=== PATIENT | female | born 1990 | race Caucasian/White ===

== ENCOUNTER 2016-02-08 19:07 | Emergency (ER) | payer MEDICAID ==
[~2016-02-08 19:07] MED LIST: GLUC40GE PO; LURA1TAB2 PO; PREN29TA PO; ZOFR4TAB PO
[2016-02-08] MEDS ORDERED: oxyCODONE/ACETAMINOPHEN 5 MG/325 MG TAB PO ONE (20:00)
--- NOTE | 2016-02-08 20:10 | PD ---
HPI Travel History International Travel<30 Days: No Contact w/Intl Traveler<30Days: No Known Affected Area: No History of Present Illness HPI This patient is a 25-year-old 3 para 1011 EDC is May 01, 2016 presently at 28 weeks and 1 day she presents with a chief complaint of low back pain radiating to the right side and down her right leg it began at approximately 2 PM no ruptured membranes no vaginal bleeding the baby is active care with Dr. Baeza that the [facility] Course is significant for spotting in the earlier and has had spotting about 2 weeks ago she is presently on pelvic rest ultrasounds at that time have been negative also has a history of decreased blood sugar Review of systems she has increased frequency urgency no discharge odors or itching denies any fever no chills no nausea no vomiting no diarrhea or constipation The patient drove to [place] for 7 hours and returned time 7 hours History Past Medical History Narrative Medical Patient is allergic to Benadryl and tomatoes denies any major medical problems Obstetric History Obstetric History First baby born March 2007 male infant weight 7 lbs. 2 oz. vaginal delivery complicated by preeclampsia in spontaneous AB of May 2013 at 18 weeks required a D&C Past Surgical History Narrative Surgical Gastric bypass 2 other surgeries secondary to gastric bypass Required a transfusion gall bladder removed Social History Alcohol Use: No Tobacco Use: No Substance Abuse: No Allergies-Medications (Allergen,Severity, Reaction): Coded Allergies: Tomato (Verified Allergy, Severe, Anaphylaxis, 01/01/16) Home Meds Active Scripts Ondansetron (Zofran)4 Mg Tab4 Mg PO Q8HR PRN (NAUSEA OR VOMITING) #10 TAB Ref 0 Prov:Jeancarlos Weathers MD 12/24/15 Reported Medications Dextrose Gel (Glucose Gel)40 % Gel1 Tube PO DIRECTED PRN (BSM) #3 TUBE Ref 0 12/25/15 Vit-Iron Carbonyl ( Plus Iron 29-1 mg)1 Tab Tab1 Tab PO DAILY #30 TAB Ref 0 12/24/15 Lurasidone (Latuda)60 Mg Tab60 Mg PO DAILY #30 TAB Ref 0 12/24/15 Review of Systems Musculoskeletal: Other (low back pain) Physical Exam Narrative GENERAL: Well-nourished, well-developed patient. Alert oriented 3 and cooperative in moderate distress secondary to low muscular back pain CARDIOVASCULAR: Regular rate and rhythm without murmurs, gallops, or rubs. RESPIRATORY: Breath sounds equal bilaterally. No accessory muscle use. ABDOMEN/GI: Gravid consistent with 28 weeks soft nontender no palpable contractions no rebound no epigastric or right upper quadrant tenderness bowel sounds are positive Gravid to [-] weeks size Fundal Height: [-] GENITOURINARY: Speculum exam is done no fluid no blood thin white discharge grossly cervix is closed External Genitalia: intact and normal in appearance BUS glands: [-] Cervix: [-] Posterior firm Dilatation: [-] Closed Effacement: [-] 0 Station: [-] High Presentation: [-] Membranes: [intact Uterine Contractions: [-]0 FHT's: Category: [-]1 Baseline: [-] 130 Reactive: [-] + Variability: [-] moderate Decels: [-] 0 EXTREMITIES: No cyanosis or edema.2+ BACK: Nontender without obvious deformity. No CVA tenderness. NEUROLOGICAL: Awake and alert. Motor and sensory grossly within normal limits. Five out of 5 muscle strength in all muscle groups. Normal speech. Data Data Vital Signs Reviewed: Yes (blood pressure 111/74 pulse 79 afebrile) Orders Vital Signs (Adult) .ON ADMISSION (02/08/16 19:51) ^ Labor Status (02/08/16 19:51) Urinalysis - C+S If Indicated (02/08/16 19:51) ^ Hydration (02/08/16 19:51) Oxycodone-Acetamin 5-325 Mg (Percocet (02/08/16 20:00) MDM Medical Record Reviewed: No (no records available) Interpretation(s) 25-year-old at 28 weeks and 1 day Not in labor Rule out UTI Musculoskeletal/sciatic pain Plan External monitoring with a category 1 tracing By mouth fluid hydration Urinalysis; if positive for UTI will treat with Macrobid one by mouth twice a day for 7 days Will give Percocet 06/08/24 2 tabs no prescription for pain Pelvic rest Limited physical activity Appointment with Dr. Baeza on Monday Diagnosis Diagnosis: Primary Impression: Musculoskeletal pain Additional Impressions: Sciatic nerve pain Qualified Code: M54.31 - Sciatic nerve pain, right 28 weeks gestation of Disposition: DISCHARGE HOME Condition: Bren Easley MD Feb 08, 2016 20:10
[2016-02-08 20:42] LABS: BLOOD, URINE NEG (NEG); COMMENT (UR) CULT NOT INDICATED; CULTURE IF INDICATED CULT NOT INDICATED; GLUCOSE,URINE NEG (NEG); KETONE, URINE NEG (NEG); MUCUS URINE FEW /lpf (OCC); NITRITE,URINE NEG (NEG); PH, URINE 6.5 (5.0-8.5); SQUAMOUS EPITHELIAL CELL URINE <1 /hpf (0-5); URINE COLOR YELLOW (YELLW/STRAW)
[2016-02-08] MEDS ORDERED: ALUMINUM/MAGNESIUM/SIMETH 30 ML CUP PO ONE (21:30)
== END 2016-02-08 21:08 | disposition home or self-care (01) ==
LOC: HOBED 19:07
DX: O26.893 Other specified pregnancy related conditions, third trimester (principal); M79.1 Myalgia; M54.31 Sciatica, right side; Z3A.28 28 weeks gestation of pregnancy
CPT/HCPCS: 81001; 99283

== ENCOUNTER 2016-02-14 14:03 | Emergency (ER) | payer MEDICAID ==
[2016-02-14 14:05] VITALS: BP 123/73; PULSE 85; TEMP 98; O2SAT 96
[2016-02-14] MEDS ORDERED: ACETAMINOPHEN/HYDROcodone 325 MG/5 MG TAB PO ONE (15:15)
--- NOTE | 2016-02-14 15:27 | PD ---
HPI Chief Complaint right sided back and leg pain Date Seen: Feb 14, 2016 Time Seen: 15:00 Travel History International Travel<30 Days: No Contact w/Intl Traveler<30Days: No Known Affected Area: No History of Present Illness HPI Pt is a 25 y/o HF with IUP at 29 wks by stated JAYLIN who presents for evaluation of right sided back pain radiating down leg. Pt states she was seen last week for this pain and diagnosed with sciatica. Pt states she was also seen by her OB doctor (Dr. Paul Baeza) and prescribed flexeril but it only makes her sleepy, not helping with pain. Pt reports that she has been using heating pad and cold packs on back but pain is not improving. Pt states pain increases with any movement or turning, difficult to walk, press gas pedal, etc. Pain is sharp/shooting, fluctuating intensity but there constantly. Pt reports she had to call out of work for 4 days and is very concerned about her job. Pt denies contractions, vb, lof, dysuria, vag discharge. +FM Para: 0 : 3 Miscarriage: 1 History Past Medical History Narrative Medical h/o morbid obesity Obstetric History Obstetric History 2008 at 34 wks, PTL 18 wk termination for spina bifida/ anomalies Past Surgical History Narrative Surgical gastric bypass multiple excess skin removal surgeries, abdominoplasty cholecystectomy Family History Narrative Family History non-contributory Social History Alcohol Use: No Tobacco Use: No Substance Abuse: No Allergies-Medications (Allergen,Severity, Reaction): Coded Allergies: Tomato (Verified Allergy, Severe, Anaphylaxis, 01/01/16) Home Meds Active Scripts Ondansetron (Zofran)4 Mg Tab4 Mg PO Q8HR PRN (NAUSEA OR VOMITING) #10 TAB Ref 0 Prov:Jeancarlos Weathers MD 12/24/15 Reported Medications Dextrose Gel (Glucose Gel)40 % Gel1 Tube PO DIRECTED PRN (BSM) #3 TUBE Ref 0 12/25/15 Vit-Iron Carbonyl ( Plus Iron 29-1 mg)1 Tab Tab1 Tab PO DAILY #30 TAB Ref 0 12/24/15 Lurasidone (Latuda)60 Mg Tab60 Mg PO DAILY #30 TAB Ref 0 12/24/15 Review of Systems General / Constitutional: No: Fever, Weight Gain, Weight Loss, Chills, Other Eyes: No: Diploplia, Blurred Vision, Visual changes, Pain, Photophobia, Other HENT: No: Headaches, Vertigo, Dental Difficulties, Lightheadedness, Other Cardiovascular: No: Irregular Rhythm, Chest Pain or Discomfort, Palpitations, Tachycardia, Syncope, Varicosities, Edema, Cyanosis, Other Respiratory: No: Cough, Short of Breath, Wheezing, Other Gastrointestinal: No: Nausea, Vomiting, Diarrhea, Abdominal Pain, Hematemesis, Hematochezia, Constipation, Changes in Bowel Habits, Indigestion, Loss of Appetite, Other Musculoskeletal: Pain Skin: No Rash, No Itching, No Dryness, No Lumps, No Change in Pigmentation, No Change in Nails, No Alopecia, No Lesions, No Breast Lumps, No Breast Tenderness , No Breast Swelling, No Other Psychiatric: No: Anxiety, Depression, Suicidal Ideations, Disorder of Thought, Mood Disorder, Substance Abuse, Homicidal Ideation, Other Endocrine: No: Heat Intolerance, Cold Intolerance, Polydipsia, Polyuria, Other Hematologic/Lymphatic: No Easy Bruising, No Lymph Node Enlargement, No Other Physical Exam Narrative GENERAL: Well-nourished, well-developed patient. SKIN: Warm and dry. HEAD: Normocephalic and atraumatic. EYES: No scleral icterus. No injection or drainage. ENT: No nasal drainage noted. Mucous membranes pink. Airway patent. NECK: Supple, trachea midline. No JVD. CARDIOVASCULAR: Regular rate and rhythm without murmurs, gallops, or rubs. RESPIRATORY: Breath sounds equal bilaterally. No accessory muscle use. ABDOMEN/GI: Abdomen soft, non-tender, bowel sounds present, no rebound, no guarding Gravid GENITOURINARY: deferred Uterine Contractions: intact FHT's: Category: 1 Baseline: 130s Reactive: yes Variability: mod Decels: 2 small variable decels noted during course of monitoring EXTREMITIES: No cyanosis or edema. BACK: Nontender without obvious deformity. No CVA tenderness. NEUROLOGICAL: Awake and alert. Motor and sensory grossly within normal limits. Five out of 5 muscle strength in all muscle groups. Normal speech. Data Data Vital Signs Reviewed: Yes (109/72, 83, 18, 98.2) Orders Vital Signs (Adult) .ON ADMISSION (02/14/16 14:55) ^ Labor Status (02/14/16 14:55) Urinalysis - C+S If Indicated (02/14/16 14:55) Acetamin-Hydrocod 325-5 Mg ([place] 5-325 (02/14/16 15:15) MDM Narrative Course / MDM 25 y/o HF with back pain and sciatica --lortab po x 1 now, rx for #20 lortab given --rest/ice x 48 hours --call OB provider regarding referral for PT --return for worsening symptoms --PTL precautions Plan d/c home with plan as above Diagnosis Diagnosis: Primary Impression: Sciatic nerve pain Qualified Code: M54.31 - Sciatic nerve pain, right Additional Impression: 29 weeks gestation of Disposition: 01 DISCHARGE HOME Condition: Stable Patient Instructions: General Instructions Additional Instructions: Please excuse from work 02/14/16 through 02/16/16. Mariano Ho MD Feb 14, 2016 15:27
== END 2016-02-14 15:51 | disposition home or self-care (01) ==
LOC: HOBED 14:21
DX: M54.31 Sciatica, right side (principal); O26.93 Pregnancy related conditions, unspecified, third trimester; Z3A.29 29 weeks gestation of pregnancy
CPT/HCPCS: 99283

== ENCOUNTER 2016-02-29 00:01 | Emergency (ER) | payer MEDICAID ==
[2016-02-29 01:30] LABS: BLOOD, URINE NEG (NEG); GLUCOSE,URINE NEG (NEG); KETONE, URINE NEG (NEG); MUCUS URINE FEW /lpf (OCC); NITRITE,URINE NEG (NEG); SQUAMOUS EPITHELIAL CELL URINE <1 /hpf (0-5); URINE COLOR LIGHT-YELLOW (YELLW/STRAW)
[2016-02-29 01:31] LABS: COMMENT (UR) CULT NOT INDICATED; CULTURE IF INDICATED CULT NOT INDICATED
--- NOTE | 2016-02-29 01:34 | PD ---
HPI Chief Complaint Abdominal pain Date Seen: Feb 29, 2016 Time Seen: 01:10 Travel History International Travel<30 Days: No Contact w/Intl Traveler<30Days: No Known Affected Area: No History of Present Illness HPI 26-year-old 012 at 31 weeks of gestation, EDC 05/01/16, patient presents to OB ED with complaint of abdominal pain and left side of the abdomen radiating to the groin. Pain score at this time is 2/10. Patient denies cramping, contractions, leakage of fluid, vaginal bleeding. She reports presence of movement. Patient is unassigned, care is with [facility]/Dr. Baeza. medical course is significant for bipolar disorder, history of gastric bypass surgery, history of preeclampsia previous and bipolar depression. Para: 2 : 3 Miscarriage: 1 : 0 History Past Medical History Narrative Medical Significant for: History of preeclampsia previous , history of gastric bypass surgery due to morbid obesity, PCO2 S, history of bipolar depression, hypoglycemia. Obstetric History Obstetric History Spontaneous vaginal delivery 2, spontaneous times one Past Surgical History Narrative Surgical Gastric bypass surgery 2, status post laparoscopic cholecystectomy Family History Narrative Family History Father has hypertension and diabetes, mother from lymphoma, grandparents has hypertension and diabetes Social History Alcohol Use: No Tobacco Use: No Substance Abuse: No Allergies-Medications (Allergen,Severity, Reaction): Coded Allergies: Tomato (Verified Allergy, Severe, Anaphylaxis, 01/01/16) Home Meds Active Scripts Ondansetron (Zofran)4 Mg Tab4 Mg PO Q8HR PRN (NAUSEA OR VOMITING) #10 TAB Ref 0 Prov:Jeancarlos Weathers MD 12/24/15 Reported Medications Dextrose Gel (Glucose Gel)40 % Gel1 Tube PO DIRECTED PRN (BSM) #3 TUBE Ref 0 12/25/15 Vit-Iron Carbonyl ( Plus Iron 29-1 mg)1 Tab Tab1 Tab PO DAILY #30 TAB Ref 0 12/24/15 Lurasidone (Latuda)60 Mg Tab60 Mg PO DAILY #30 TAB Ref 0 12/24/15 Review of Systems Except as stated in HPI: all other systems reviewed are Neg Gastrointestinal: Abdominal Pain Physical Exam Narrative GENERAL: Well-nourished, well-developed patient. SKIN: Warm and dry. HEAD: Normocephalic and atraumatic. EYES: No scleral icterus. No injection or drainage. ENT: No nasal drainage noted. Mucous membranes pink. Airway patent. NECK: Supple, trachea midline. No JVD. CARDIOVASCULAR: Regular rate and rhythm without murmurs, gallops, or rubs. RESPIRATORY: Breath sounds equal bilaterally. No accessory muscle use. BREASTS: Bilateral exam showed no masses , no retractions, no nipple discharge. ABDOMEN/GI: Abdomen soft, gravid, non-tender, bowel sounds present, no rebound, no guarding Gravid to 31 weeks size Fundal Height: 31 cm GENITOURINARY: External Genitalia: intact and normal in appearance BUS glands: normal Cervix: Closed, long, posterior Dilatation: Closed Effacement: 30% Station: -3 Presentation: Cephalic Membranes: Intact Uterine Contractions: None FHT's: Category: one Baseline: 130s Reactive: Yes Variability: Moderate Decels: none EXTREMITIES: No cyanosis or edema. BACK: Nontender without obvious deformity. No CVA tenderness. NEUROLOGICAL: Awake and alert. Motor and sensory grossly within normal limits. Five out of 5 muscle strength in all muscle groups. Normal speech. Data Data Vital Signs Reviewed: Yes Orders Vital Signs (Adult) .ON ADMISSION (02/29/16 01:21) ^ Labor Status (02/29/16 01:21) Urinalysis - C+S If Indicated (02/29/16 01:21) ^ Hydration (02/29/16 01:21) MDM Medical Record Reviewed: Yes Diagnosis Diagnosis: Primary Impression: 31 weeks gestation of Additional Impression: Pain of round ligament affecting , antepartum Disposition: 01 DISCHARGE HOME Condition: Stable Patient Instructions: Abdominal Pain in (ED), General Instructions Additional Instructions: Patient instructed to return to labor and delivery if increased symptoms, cramping, contractions, leakage of fluids, vaginal bleeding or decreased movement. Drink plenty of fluids. Monitor kick counts. Keep office appointment with your doctor as scheduled. Pelvic rest. Take Tylenol for pain as needed. Stephen Pearce MD Feb 29, 2016 01:34
== END 2016-02-29 01:33 | disposition home or self-care (01) ==
LOC: HOBED 00:01
DX: O26.893 Other specified pregnancy related conditions, third trimester (principal); R10.2 Pelvic and perineal pain; Z3A.31 31 weeks gestation of pregnancy
CPT/HCPCS: 81001; 99284

== ENCOUNTER 2016-03-22 12:00 | Observation (INO) | payer MEDICAID ==
--- NOTE | 2016-03-22 12:45 | PD ---
HPI Chief Complaint Here for second opinion because of low HARLEY Date Seen: Mar 22, 2016 Time Seen: 12:41 Travel History International Travel<30 Days: No Contact w/Intl Traveler<30Days: No Known Affected Area: No History of Present Illness HPI 26 at 34.2 and JAYLIN 05/01; care previously with Dr. Baeza. Patient reportedly had an ultrasound performed on 03/18 at her doctor's office which showed an HARLEY of 2.8; the patient states her doctor did not have a definitive plan for this low fluid and "probably will be induced." This morning , the patient contacted care for [facility] for second opinion on this matter. [facility] recommended the patient come to [place] for second opinion. Patient is unsure if she has been leaking fluid. However, she states for the past 2-3 weeks she has felt "wetter." She would like another ultrasound scan to evaluate her HARLEY. She denies vaginal bleeding. She is feeling the baby move as normal. No fever, chills. Para: 2 : 3 History Past Medical History Narrative Medical Morbid obesity. PCO S Bipolar Low blood sugar Obstetric History Obstetric History 26 First : Delivered at 35 weeks secondary to preeclampsia. Second : demise at 24 weeks Past Surgical History Narrative Surgical Gastric bypass 2 Laparoscopy cholecystectomy Family History Family History: Negative Social History Alcohol Use: No Tobacco Use: No Substance Abuse: No Allergies-Medications (Allergen,Severity, Reaction): Coded Allergies: Tomato (Verified Allergy, Severe, Anaphylaxis, 01/01/16) Home Meds Active Scripts Ondansetron (Zofran)4 Mg Tab4 Mg PO Q8HR PRN (NAUSEA OR VOMITING) #10 TAB Ref 0 Prov:Jeancarlos Weathers MD 12/24/15 Reported Medications Dextrose Gel (Glucose Gel)40 % Gel1 Tube PO DIRECTED PRN (BSM) #3 TUBE Ref 0 12/25/15 Vit-Iron Carbonyl ( Plus Iron 29-1 mg)1 Tab Tab1 Tab PO DAILY #30 TAB Ref 0 12/24/15 Lurasidone (Latuda)60 Mg Tab60 Mg PO DAILY #30 TAB Ref 0 12/24/15 Review of Systems General / Constitutional: No: Fever Physical Exam Narrative GENERAL: Well-nourished, well-developed patient. SKIN: Warm and dry. HEAD: Normocephalic and atraumatic. EYES: No scleral icterus. No injection or drainage. ENT: No nasal drainage noted. Mucous membranes pink. Airway patent. NECK: Supple, trachea midline. No JVD. CARDIOVASCULAR: Regular rate and rhythm without murmurs, gallops, or rubs. RESPIRATORY: Breath sounds equal bilaterally. No accessory muscle use. ABDOMEN/GI: Abdomen soft, non-tender, bowel sounds present, no rebound, no guarding Uterine Contractions: None FHT's: Category: 1 Baseline: 140 Reactive: Yes Variability: Moderate Decels: None EXTREMITIES: No cyanosis or edema. BACK: Nontender without obvious deformity. No CVA tenderness. NEUROLOGICAL: Awake and alert. Motor and sensory grossly within normal limits. Five out of 5 muscle strength in all muscle groups. Normal speech. Data Data Vital Signs Reviewed: Yes MDM Medical Record Reviewed: Yes Interpretation(s) 28 at 34.2 present for a second opinion secondary to reportedly low HARLEY. 1. IUP Category 1 tracing Continue to monitor 2. Oligohydramnios -Obtain records -US for BPP -UA -Consult perinatology secondary to reported oligohydramnios, demise at 24 weeks with spina bifida, history of preeclampsia. DW: Dr. Curry Narrative Course / MDM Discussed the case with perinatology. Amniosure negative Patient will be admitted overnight IV hydration with LR Betamethasone 12 mg IM 2 days. Ultrasound patient tomorrow. If persistent oligohydramnios despite IV hydration, consider inducing per MFM recommendations. Plan admit for observation Kahlil Purcell MD R2 Mar 22, 2016 12:45
[2016-03-22 13:38] LABS: BLOOD, URINE NEG (NEG); GLUCOSE,URINE NEG (NEG); HYALINE CAST, URINE 2 /lpf (RARE); KETONE, URINE NEG (NEG); MUCUS URINE FEW /lpf (OCC); NITRITE,URINE NEG (NEG); SQUAMOUS EPITHELIAL CELL URINE 3 /hpf (0-5); URINE COLOR YELLOW (YELLW/STRAW)
[2016-03-22 13:45] LABS: COMMENT (UR) CULT NOT INDICATED; CULTURE IF INDICATED CULT NOT INDICATED
--- NOTE | 2016-03-22 14:12 | HHI.HP ---
HPI Chief Complaint Patient was told she had low fluid volume on ultrasound done last week, she is here for a second opinion on that condition, she sees Dr. Baeza for care [facility]. Date Seen: Mar 22, 2016 Travel History International Travel<30 Days: No Contact w/Intl Traveler<30Days: No Known Affected Area: No History of Present Illness HPI This patient is 26-year-old white female L1 34 weeks who had an ultrasound last week was told she had a low fluid volume of 2.8 which may been just a vertical volume pocket of fluid they measured during her biophysical profile. We do not have report of that exam. With the patient interpreted that is a low amniotic fluid index is a she presents here for second opinion on that condition. Patient denies bleeding or actually ruptured membranes that she says she's felt damp are moist and her clothing. Her baby is active heart rate tracing is reactive and she still had some mild uterine irritability. Para: 2 : 3 History Past Medical History Medical History: Denies Significant Hx Obstetric History Obstetric History The patient had a 24 week demise due to spina bifida and neural tube defect with her last baby, her first baby delivered at 35 weeks due to preeclampsia Family History Family History: Negative Social History Alcohol Use: No Tobacco Use: No Substance Abuse: No Allergies-Medications (Allergen,Severity, Reaction): Coded Allergies: Tomato (Verified Allergy, Severe, Anaphylaxis, 01/01/16) Home Meds Active Scripts Ondansetron (Zofran)4 Mg Tab4 Mg PO Q8HR PRN (NAUSEA OR VOMITING) #10 TAB Ref 0 Prov:Jeancarlos Weathers MD 12/24/15 Reported Medications Dextrose Gel (Glucose Gel)40 % Gel1 Tube PO DIRECTED PRN (BSM) #3 TUBE Ref 0 12/25/15 Vit-Iron Carbonyl ( Plus Iron 29-1 mg)1 Tab Tab1 Tab PO DAILY #30 TAB Ref 0 12/24/15 Lurasidone (Latuda)60 Mg Tab60 Mg PO DAILY #30 TAB Ref 0 12/24/15 Review of Systems General / Constitutional: No: Fever, Weight Gain, Chills, Other Eyes: No: Diploplia, Blurred Vision, Visual changes, Pain, Photophobia HENT: No: Headaches, Vertigo, Lightheadedness Cardiovascular: No: Irregular Rhythm, Chest Pain or Discomfort, Palpitations, Tachycardia, Syncope, Varicosities, Edema, Cyanosis Respiratory: No: Cough, Short of Breath, Other Gastrointestinal: No: Nausea, Vomiting, Diarrhea Genitourinary: No: Decreased Urinary Output, Oliguria Musculoskeletal: No: Limited ROM, Weakness, Cramping, Edema, Pain Skin: No Rash, No Itching, No Dryness, No Lumps, No Change in Pigmentation, No Change in Nails, No Alopecia, No Lesions Neurologic: No: Weakness, Dizziness, Syncope, Focal Abnormalities, Coordination Problem, Headache, Slurred Speech, Seizures Psychiatric: No: Depression, Suicidal Ideations, Homicidal Ideation Endocrine: No: Heat Intolerance, Cold Intolerance, Polydipsia, Polyuria, Other Physical Exam Narrative GENERAL: Well-nourished, well-developed patient. SKIN: Warm and dry. HEAD: Normocephalic and atraumatic. EYES: No scleral icterus. No injection or drainage. ENT: No nasal drainage noted. Mucous membranes pink. Airway patent. NECK: Supple, trachea midline. No JVD. CARDIOVASCULAR: Regular rate and rhythm without murmurs, gallops, or rubs. RESPIRATORY: Breath sounds equal bilaterally. No accessory muscle use. BREASTS: Bilateral exam showed no masses , no retractions, no nipple discharge. ABDOMEN/GI: Abdomen soft, non-tender, bowel sounds present, no rebound, no guarding Gravid to [-34] weeks size Fundal Height: [35 cm-] GENITOURINARY: External Genitalia: intact and normal in appearance BUS glands: [-] Cervix: [-] Closed Dilatation: [0-] Effacement: [-50] Station: [-3] Presentation: [-vtx] Membranes: [intact ] amnisure done and is pending at this time Uterine Contractions: [-]+ irritability FHT's: Category: [1-] Baseline: [-133] Reactive: [-yes] Variability: [mod-] Decels: [-none] EXTREMITIES: No cyanosis or edema. BACK: Nontender without obvious deformity. No CVA tenderness. NEUROLOGICAL: Awake and alert. Motor and sensory grossly within normal limits. Five out of 5 muscle strength in all muscle groups. Normal speech. Data Data Orders Vital Signs (Adult) .ON ADMISSION (03/22/16 12:45) ^ Non Stress Test (03/22/16 12:45) ^ Hydration (03/22/16 12:45) Urinalysis - C+S If Indicated (03/22/16 13:02) Consult Perinatology (03/22/16 ) Us Ob Bpp Wo Nst W Repeat (03/22/16 13:05) Pamg-1 Test .ONCE (03/22/16 13:51) Betamethasone Inj ([place] Soluspan In (03/22/16 14:00) Labs Laboratory Tests Test 03/22/16 12:24 Urine Color YELLOW Urine Turbidity CLEAR Urine pH 6.0 Urine Specific [place] 1.014 Urine Protein NEG Urine Glucose (UA) NEG Urine Ketones NEG Urine Occult Blood NEG Urine Nitrite NEG Urine Bilirubin NEG Urine Urobilinogen LESS THAN 2.0 Urine Leukocyte Esterase TRACE Urine RBC LESS THAN 1 Urine WBC 1 Urine Squamous Epithelial 3 Cells Urine Hyaline Casts 2 Urine Mucus FEW Microscopic Urinalysis Comment CULT NOT INDICATED Assessment/Plan Assessment and Plan This patient is a 26-year-old white female 34 weeks who was followed by Dr. Baeza [facility] for OB care she had ultrasound done last week that showed low fluid volume and she presents here today for a repeat second opinion on that. That she's having no complaints are she does notice some dampness vaginally with no rudi of ruptured membranes no bleeding no regular contractions baby is active. This patient's amnio sure was negative today. She had a ultrasound done and biophysical profile done by perinatology team in the back and her HARLEY was 4.0 and biophysical profile 6 of 8 the estimated weight was 4 lbs. 11 oz. on ultrasound. This patient's past history of a demise with neural tube defect last 24 weeks in a prior also delivering early for preeclampsia her obstetric history is pretty poor and felt that she should be evaluated by the team. I discussed the case with perinatologist who recommended she be admitted for observation hydrated IV fluid and repeat her ultrasound tomorrow and if it is same or worse then consider induction of labor area if it is improved and conservative care may be continued. She is also to get round of steroids IM given in the usual fashion Marino Curry II, MD Mar 22, 2016 14:12
[2016-03-22] MEDS ORDERED: SODIUM CHLORIDE 0.9% FLUSH 5 ML FLUSH IV PRN (14:15)
--- NOTE | 2016-03-22 14:16 | PD.CONS ---
HPI Chief Complaint Low amniotic fluid. Date Seen: Mar 22, 2016 Time Seen: 13:30 Travel History International Travel<30 Days: No Contact w/Intl Traveler<30Days: No Known Affected Area: No History of Present Illness HPI 26 yo [id number] with wilson 05/01/16 at 34w 2d. PNC by Dr Baeza. Pt states that she had ultrasound last Monday in which the amniotic fluid was decreased at 2 cm. Called for a second opinion and was told to come to the ED here. States has felt frequently wet vaginally in the past 2 weeks. No vag bleeding or CTX. No fever. Active fetus as usual. States had negative QS and GDM screen earlier in - no records available. History Past Medical History Narrative Medical Hypoglycemis; gastric by pass, abdominoplasty Obstetric History Obstetric History 1. 35 wk vag delivery- preeclampsia. 2. 24 wk IUFD- ONTD + some chromosomal abnormality Past Surgical History Narrative Surgical Gastric by pass, abdominoplasty Family History Narrative Family History Father- HTN, DM; Mother- HTN, Br Ca- ; Brother- HTN; GM- DM Social History Alcohol Use: No Tobacco Use: No Substance Abuse: No Allergies-Medications (Allergen,Severity, Reaction): Coded Allergies: Tomato (Verified Allergy, Severe, Anaphylaxis, 01/01/16) Home Meds Active Scripts Ondansetron (Zofran)4 Mg Tab4 Mg PO Q8HR PRN (NAUSEA OR VOMITING) #10 TAB Ref 0 Prov:Jeancarlos Weathers MD 12/24/15 Reported Medications Dextrose Gel (Glucose Gel)40 % Gel1 Tube PO DIRECTED PRN (BSM) #3 TUBE Ref 0 12/25/15 Vit-Iron Carbonyl ( Plus Iron 29-1 mg)1 Tab Tab1 Tab PO DAILY #30 TAB Ref 0 12/24/15 Lurasidone (Latuda)60 Mg Tab60 Mg PO DAILY #30 TAB Ref 0 12/24/15 Review of Systems Except as stated in HPI: all other systems reviewed are Neg Physical Exam Narrative GENERAL: Well-nourished, well-developed patient. SKIN: Warm and dry. HEAD: Normocephalic and atraumatic. EYES: No scleral icterus. No injection or drainage. ENT: No nasal drainage noted. Mucous membranes pink. Airway patent. NECK: Supple, trachea midline. No JVD. CARDIOVASCULAR: Regular rate and rhythm without murmurs, gallops, or rubs. RESPIRATORY: Breath sounds equal bilaterally. No accessory muscle use. ABDOMEN/GI: Abdomen soft, non-tender, bowel sounds present, no rebound, no guarding Gravid uterus, no contractions Pelvic: Deferred EXTREMITIES: No cyanosis or edema. BACK: Nontender without obvious deformity. No CVA tenderness. NEUROLOGICAL: Awake and alert. Motor and sensory grossly within normal limits. Five out of 5 muscle strength in all muscle groups. Normal speech. FMS: Baseline 140s BPM, reactive, occasional mild variable. No CTX. US: Cephalic, efw 4lbs 11oz, limited anatomy due to oligo/ BH/position; HARLEY 4 cm ; BPP 6/8 (-2 for fluid); Umb art Doppler-2.6. Placenta anterior, gr3 with areas of infarcts. Data Data Orders Vital Signs (Adult) .ON ADMISSION (03/22/16 12:45) ^ Non Stress Test (03/22/16 12:45) ^ Hydration (03/22/16 12:45) Urinalysis - C+S If Indicated (03/22/16 13:02) Consult Perinatology (03/22/16 ) Us Ob Bpp Wo Nst W Repeat (03/22/16 13:05) Pamg-1 Test .ONCE (03/22/16 13:51) Betamethasone Inj (Celestone Soluspan In (03/22/16 14:00) Labs NA yet MDM Medical Record Reviewed: No Narrative Course / MDM IMPRESSION: 1. IUP 34w 2d 2. Severe oligohydramnios RECOMMENDATIONS: 1. PPROM evaluation by OB 2. If PROM confirmed: - late pre term steroids then proceed with induction of labor tomorrow 3.. If PROM ruled out: - Late pre term steroids today and repeat dose tomorrow - IV hydration overnight - Repeat HARLEY tomorrow - Deliver if persists with severe oligohydramnios 4. Discussed late pre term steroids for lung maturity- pros/ cons reviewed, including risk of hypoglycemia 5. Situation, recommendations and risks (including late pre term risks as well as risks of IUFD, neurologic damage, etc) discussed. All questions answered. 6. Case/ recommendations discussed with Dr Curry 60 minutes. Randall Lerma MD Mar 22, 2016 14:16
[2016-03-22 14:33] LABS: AUTOMATED NEUTROPHIL # 6.7 TH/MM3 (1.8-7.7); BASOPHIL # 0.1 TH/MM3 (0-0.2); BASOPHIL % 0.8 % (0.0-2.0); EOSINOPHIL # 0.1 TH/MM3 (0-0.4); EOSINOPHIL % 0.8 % (0.0-4.0); HEMATOCRIT 32.8 % (35.0-46.0); HEMO FLAGS DIFF FINAL; LYMPH % 14.9 % (9.0-44.0); LYMPHOCYTE # 1.3 TH/MM3 (1.0-4.8); MEAN CELL VOLUME 85.1 FL (80.0-100.0); MEAN CORPUSCULAR HEMOGLOBIN 28.4 PG (27.0-34.0); MEAN CORPUSCULAR HGB CONC 33.3 % (32.0-36.0); MONO % 7.4 % (0.0-8.0); NEUT % 76.1 % (16.0-70.0); PLATELET COUNT 196 TH/MM3 (150-450); RED BLOOD COUNT 3.86 MIL/MM3 (4.00-5.30); RED CELL DISTRIBUTION WIDTH 13.7 % (11.6-17.2); WHITE BLOOD COUNT 8.8 TH/MM3 (4.0-11.0)
[2016-03-22] MEDS: LACTATED RINGER'S 1000 ML INJ 1,000 ML IV SCH ×2 (14:41→21:31)
[2016-03-22] MEDS: BETAMETHASONE SOD PHOS/ACETATE SUSP 30 MG/5 ML VIAL IM SCH (14:41)
[2016-03-22 14:59] LABS: POTASSIUM 3.9 MEQ/L (3.5-5.1)
[2016-03-22 16:28] VITALS: BP 136/74; PULSE 79; RESP 18; TEMP 98.2
[2016-03-22 19:42] VITALS: BP 119/65; PULSE 89; RESP 18; TEMP 99
[2016-03-22] MEDS: SODIUM CHLORIDE 0.9% FLUSH 5 ML FLUSH IV SCH ×2 (21:00→21:30)
[2016-03-22 21:19] VITALS: BP 123/73; PULSE 76; TEMP 98
[2016-03-22 21:46] VITALS: RESP 18
[2016-03-22 23:20] VITALS: BP 124/66; PULSE 76
[2016-03-22 23:21] VITALS: RESP 18; TEMP 98
[2016-03-23] VITALS (7 sets, daily range): BP systolic 112–135; BP diastolic 54–77; PULSE 70–93; RESP 18–20; TEMP 97.9–98
[2016-03-23] MEDS ORDERED: diphenhydrAMINE HCL 50 MG CAP PO PRN (04:15)
[2016-03-23] MEDS: LACTATED RINGER'S 1000 ML INJ 1,000 ML IV SCH (04:25)
--- NOTE | 2016-03-23 09:40 | PD.OB.ANTE ---
Subjective Interval History This patient is 34 weeks with oligohydramnios. She's been followed Dr. Baeza for OB care, she has a biophysical profile and HARLEY yesterday was 4.0 , and BPP was 6 of 8, she was seen by maternal- medicine and recommended admission and IV hydration and a recheck of her HARLEY today. That was done she received several liters of LR. She is clinically remained in good condition. Her ultrasound today shows an HARLEY of 5.5 with a biophysical 8 out of 8. At this time I would not recommend induction of labor at 34 weeks but continuous conservative care and close monitoring of amniotic fluid volume she is going to have her records and go to Dr. Baeza for review of same and will recommend the HARLEY every 3-4 days and induction of labor that HARLEY decreases significantly Objective Vital Signs Vital Signs Date Time Temp Pulse Resp B/P Pulse Ox O2 Delivery O2 Flow Rate FiO2 03/23/16 04:26 97.9 03/23/16 04:17 18 03/23/16 04:16 70 135/77 03/23/16 01:45 98.0 18 03/23/16 01:41 72 112/54 03/22/16 23:21 98.0 18 03/22/16 23:20 76 124/66 03/22/16 21:46 18 03/22/16 21:19 98.0 03/22/16 21:19 76 123/73 03/22/16 19:42 99.0 89 18 03/22/16 19:42 119/65 03/22/16 16:28 98.2 79 18 136/74 Lab & Micro Results Test 03/22/16 03/22/16 12:24 14:20 Urine Color YELLOW Urine Turbidity CLEAR Urine pH 6.0 Urine Specific [place] 1.014 Urine Protein NEG mg/dL Urine Glucose (UA) NEG mg/dL Urine Ketones NEG mg/dL Urine Occult Blood NEG Urine Nitrite NEG Urine Bilirubin NEG Urine Urobilinogen LESS THAN 2.0 MG/DL Urine Leukocyte Esterase TRACE Urine RBC LESS THAN 1 /hpf Urine WBC 1 /hpf Urine Squamous Epithelial 3 /hpf Cells Urine Hyaline Casts 2 /lpf Urine Mucus FEW /lpf Microscopic Urinalysis Comment CULT NOT INDICATED White Blood Count 8.8 TH/MM3 Red Blood Count 3.86 MIL/MM3 Hemoglobin 10.9 GM/DL Hematocrit 32.8 % Mean Corpuscular Volume 85.1 FL Mean Corpuscular Hemoglobin 28.4 PG Mean Corpuscular Hemoglobin 33.3 % Concent Red Cell Distribution Width 13.7 % Platelet Count 196 TH/MM3 Mean Platelet Volume 11.1 FL Neutrophils (%) (Auto) 76.1 % Lymphocytes (%) (Auto) 14.9 % Monocytes (%) (Auto) 7.4 % Eosinophils (%) (Auto) 0.8 % Basophils (%) (Auto) 0.8 % Neutrophils # (Auto) 6.7 TH/MM3 Lymphocytes # (Auto) 1.3 TH/MM3 Monocytes # (Auto) 0.7 TH/MM3 Eosinophils # (Auto) 0.1 TH/MM3 Basophils # (Auto) 0.1 TH/MM3 CBC Comment DIFF FINAL Differential Comment Sodium Level 139 MEQ/L Potassium Level 3.9 MEQ/L Chloride Level 108 MEQ/L Carbon Dioxide Level 23.0 MEQ/L Anion Gap 8 MEQ/L Blood Urea Nitrogen 8 MG/DL Creatinine 0.66 MG/DL Estimat Glomerular Filtration 107 ML/MIN Rate Random Glucose 82 MG/DL Calcium Level 8.5 MG/DL Blood Type O POSITIVE Antibody Screen NEGATIVE Physical Exam GENERAL: Well-nourished, well-developed patient. CARDIOVASCULAR: Regular rate and rhythm without murmurs, gallops, or rubs. RESPIRATORY: Breath sounds equal bilaterally. No accessory muscle use. ABDOMEN/GI: Abdomen soft, non-tender. Fundus: [-] GENITOURINARY: External Genitalia: intact and normal in appearance Cervix: [-] Dilatation: [-] Effacement: [-] Station: [-] Presentation: [-] Membranes: [-] Uterine Contractions: [-] FHT's: Category: [-] Baseline: [-] Reactive: [-] Variability: [-] Decels: [-] EXTREMITIES: No cyanosis or edema, non-tender, without signs of DVT. Assessment and Plan Assessment and Plan This patient is a 26-year-old white female 34 weeks who was followed by Dr. Baeza [facility] for OB care she had ultrasound done last week that showed low fluid volume and she presents here today for a repeat second opinion on that. That she's having no complaints are she does notice some dampness vaginally with no rudi of ruptured membranes no bleeding no regular contractions baby is active. This patient's amnio sure was negative today. She had a ultrasound done and biophysical profile done by perinatology team in the back and her HARLEY was 4.0 and biophysical profile 6 of 8 the estimated weight was 4 lbs. 11 oz. on ultrasound. This patient's past history of a demise with neural tube defect last 24 weeks in a prior also delivering early for preeclampsia her obstetric history is pretty poor and felt that she should be evaluated by the team. I discussed the case with perinatologist who recommended she be admitted for observation hydrated IV fluid and repeat her ultrasound tomorrow and if it is same or worse then consider induction of labor area if it is improved and conservative care may be continued. She is also to get round of steroids IM given in the usual fashion Marino Curry II, MD Mar 23, 2016 09:40
--- NOTE | 2016-03-23 09:52 | HHI.DCPOC ---
Discharge Care Plan Diagnosis: (1) Oligohydramnios antepartum (2) 34 weeks gestation of (3) Bipolar disorder (4) Hypoglycemia after GI (gastrointestinal) surgery (5) Hx of gastric bypass Report Symptoms to Your Doctor -Temperate above 100.5 degrees -Redness, of incision or excessive or foul smelling drainage -Unusual pain or calf pain -Increased vaginal bleeding -Painful or difficulty urinating -Feelings of extreme sadness or anxiety after 2 weeks Goals to Promote Your Health * To prevent worsening of your condition and complications * To maintain your health at the optimal level Directions to Meet Your Goals Take your medications as prescribed Follow your dietary instruction Follow activity as directed Ensure plenty of rest for recovery Drink fluids for hydration Keep your appointments as scheduled Take your immunizations and boosters as scheduled If your symptoms worsen call your PCP, if no PCP go to Urgent Care Center or Emergency Room Smoking is Dangerous to Your Health. Avoid second hand smoke Call the 24-hour crisis hotline for domestic abuse at Maria M Hung MD R1 Mar 23, 2016 09:52
[2016-03-23 12:28] LABS: AMPHETAMINE, URINE NEG (NEG); BARBITURATES, URINE NEG (NEG); COCAINE, URINE NEG (NEG)
[2016-03-23] MEDS: BETAMETHASONE SOD PHOS/ACETATE SUSP 30 MG/5 ML VIAL IM SCH (13:27)
[2016-03-29 07:30] LABS: PHENCYCLIDINE URINE NEG (NEG)
[2016-03-29 07:31] LABS: BATH SALTS (MDPV) UR NEG (NEG); ECSTASY (MDMA) UR NEG (NEG); HEROIN (6-ACETYLMORPHINE) UR NEG (NEG); K2 SPICE UR NEG (NEG); OBMETHADONE UR NEG (NEG); OXYCODONE (PERCODAN) NEG (NEG)
== END 2016-03-23 13:54 | disposition home or self-care (01) ==
LOC: HOBED 12:00 → H2EA 14:18
PROVIDERS: ADMIT Obstetrics & Gynecology Maternal & Fetal Medicine; ATTEND Obstetrics & Gynecology Maternal & Fetal Medicine
DX: O41.03X0 Oligohydramnios, third trimester, not applicable or unspecified (principal); E16.1 Other hypoglycemia; F31.9 Bipolar disorder, unspecified; Z3A.34 34 weeks gestation of pregnancy; Z98.84 Bariatric surgery status
CPT/HCPCS: 59025; 76816; 76819; 80048; 80307; 81001; 85025; 86850; 86900; 86901; 99285; G0378; G0481; J0702; J7120; Q0163

== ENCOUNTER 2016-04-01 23:48 | Emergency (ER) | payer MEDICAID ==
[~2016-04-01 23:48] MED LIST changes: -LURA1TAB2 PO
--- NOTE | 2016-04-02 00:38 | PD ---
HPI Chief Complaint Decreased movement Date Seen: Apr 02, 2016 Time Seen: 00:33 Travel History International Travel<30 Days: No Contact w/Intl Traveler<30Days: No Known Affected Area: No History of Present Illness HPI Patient is a 26-year-old female who is presently at 35 weeks 6 days. Patient has a due date of May 01, 2016. She is being followed twice weekly for oligohydramnios. Her last ultrasound measuring her fluid was yesterday. She has an induction set up for next Monday at [facility]. Patient states the baby is moving well since she's been here in labor and delivery. Para: 1 : 3 History Past Medical History Medical History: Denies Significant Hx Obstetric History Obstetric History Spontaneous vaginal delivery Past Surgical History Narrative Surgical Gastric bypass with subsequent removal of excess skin Breast augmentation Family History Family History: Negative Social History Alcohol Use: No Tobacco Use: No Substance Abuse: No Allergies-Medications (Allergen,Severity, Reaction): Coded Allergies: Tomato (Verified Allergy, Severe, Anaphylaxis, 01/01/16) Home Meds Active Scripts Ondansetron (Zofran)4 Mg Tab4 Mg PO Q8HR PRN (NAUSEA OR VOMITING) #10 TAB Ref 0 Prov:Jeancarlos Weathers MD 12/24/15 Reported Medications Dextrose Gel (Glucose Gel)40 % Gel1 Tube PO DIRECTED PRN (BSM) #3 TUBE Ref 0 12/25/15 Vit-Iron Carbonyl ( Plus Iron 29-1 mg)1 Tab Tab1 Tab PO DAILY #30 TAB Ref 0 12/24/15 Review of Systems Except as stated in HPI: all other systems reviewed are Neg Physical Exam Narrative GENERAL: Well-nourished, well-developed patient. SKIN: Warm and dry. HEAD: Normocephalic and atraumatic. EYES: No scleral icterus. No injection or drainage. ENT: No nasal drainage noted. Mucous membranes pink. Airway patent. NECK: Supple, trachea midline. No JVD. CARDIOVASCULAR: Regular rate and rhythm without murmurs, gallops, or rubs. RESPIRATORY: Breath sounds equal bilaterally. No accessory muscle use. BREASTS: Bilateral exam showed no masses , no retractions, no nipple discharge. ABDOMEN/GI: Abdomen soft, non-tender, bowel sounds present, no rebound, no guarding Gravid to [36 weeks-] weeks size Fundal Height: [-] GENITOURINARY: Deferred External Genitalia: intact and normal in appearance BUS glands: [-] Cervix: [-] Dilatation: [-] Effacement: [-] Station: [-] Presentation: [-] Membranes: [intact or ruptured] Uterine Contractions: [-] FHT's: Category: [-1] Baseline: 140 Reactive: Reactive Variability: [-Moderate] Decels: [-Absent] accelerations are present EXTREMITIES: No cyanosis or edema. BACK: Nontender without obvious deformity. No CVA tenderness. NEUROLOGICAL: Awake and alert. Motor and sensory grossly within normal limits. Five out of 5 muscle strength in all muscle groups. Normal speech. MDM Plan Patient is a 26-year-old female with known oligohydramnios. Twice weekly testing has been normal. Patient experienced transient decreased movement that has subsequently resolved since she has been here in labor and delivery. She has a induction set up for next Monday. She has 2 additional appointments this week for testing. Diagnosis Diagnosis: Primary Impression: 35 weeks gestation of Additional Impression: Decreased amniotic fluid Disposition: DISCHARGE HOME Ebonie Julian MD Apr 02, 2016 00:38
== END 2016-04-02 01:15 | disposition home or self-care (01) ==
LOC: HOBED 23:48
DX: O41.03X0 Oligohydramnios, third trimester, not applicable or unspecified (principal); Z3A.35 35 weeks gestation of pregnancy
CPT/HCPCS: 59025

== ENCOUNTER 2016-07-03 23:40 | Emergency (ER) | payer MEDICAID ==
[~2016-07-03] VITALS: Ht 165.1 cm; Wt 108.0 kg
[2016-07-03 23:42] VITALS: BP 140/86; PULSE 78; RESP 18; TEMP 97.7; O2SAT 100
[2016-07-03] MEDS ORDERED: LURA120T PO (23:46)
[2016-07-04 00:10] VITALS: BP 135/81; PULSE 84; RESP 18; O2SAT 99
--- NOTE | 2016-07-04 00:56 | PD ---
HPI Chief Complaint: Fall Time Seen by Provider: 00:52 Travel History International Travel<30 days: No Contact w/Intl Traveler<30days: No Traveled to known affect area: No History of Present Illness HPI The patient is a 26-year-old female, frequent visitor to emergency department for minor problems who fell 4 hours ago and hurt her left shoulder. She has never fractured her left shoulder before. She denies any other injury. She states there is no possibility of . PFSH Past Medical History Hx Anticoagulant Therapy: No Anemia: Yes (S/P SURGERY) Bipolar Disorder: Yes Anxiety: Yes Depression: Yes Cancer: No Cardiovascular Problems: No Chemotherapy: No Cerebrovascular Accident: No Diabetes: Yes (hypoglycemic) Diminished Hearing: No Endocrine: Yes (HYPOGLYCEMIC AT TIMES) Gastrointestinal Disorders: No Genitourinary: No Immune Disorder: No Implanted Vascular Access Dvce: Yes Medical other: Yes (HYPOGLYCEMIC) Musculoskeletal: No Neurologic: No Psychiatric: No Reproductive: Yes (PCOS) Respiratory: No Immunizations Current: Yes Sleep Apnea: Yes (RESOLVED) Thyroid Disease: No Tetanus Vaccination: < 5 Years Influenza Vaccination: Yes ?: Not LMP: NOW : 3 Para: 2 Miscarriage: 1 Ovarian Cysts: Yes Past Surgical History Abdominal Surgery: Yes (GBP, ABDOMINOPLASTY, cholecystectomy) Body Medical Devices: BREAT IMPLANTS Cholecystectomy: Yes Hysterectomy: No Other Surgery: Yes (TUMMY TUCK AND EXCESS SKIN REMOVAL 4 DAYS) Social History Alcohol Use: No Tobacco Use: No Substance Use: No Allergies-Medications (Allergen,Severity, Reaction): Coded Allergies: Tomato (Verified Allergy, Severe, Anaphylaxis, 07/03/16) Reported Meds & Prescriptions Reported Meds & Active Scripts Active Reported Latuda (Lurasidone) 120 Mg Tab 120 Mg PO DAILY Review of Systems Except as stated in HPI: all other systems reviewed are Neg Physical Exam Narrative GENERAL: Well-nourished, well-developed patient in minimal apparent distress with her left shoulder pain. Her vital signs are normal. SKIN: Focused skin assessment warm/dry. HEAD: Normocephalic. EYES: No scleral icterus. No injection or drainage. NECK: Supple, trachea midline. No JVD or lymphadenopathy. CARDIOVASCULAR: Regular rate and rhythm without murmurs, gallops, or rubs. RESPIRATORY: Breath sounds equal bilaterally. No accessory muscle use. GASTROINTESTINAL: Abdomen soft, non-tender, nondistended. MUSCULOSKELETAL: No cyanosis, or edema. There is no ecchymoses noted over the left shoulder. There is no deformity of the left shoulder. The only clavicle or tenderness is at the lateral aspect of the clavicle and is minimal. She has active abduction of the left shoulder to 90 but this is limited beyond that because of pain. Good capillary refill and pinprick is present distally on the left hand. BACK: Nontender without obvious deformity. No CVA tenderness. Data Data Last Documented VS Vital Signs Date Time Temp Pulse Resp B/P Pulse Ox O2 Delivery O2 Flow Rate FiO2 07/04/16 01:30 76 16 140/85 100 Room Air 07/03/16 23:42 97.7 Orders Shoulder, Complete (>2vws) (07/04/16 00:53) [facility] Medical Decision Making Medical Screen Exam Complete: Yes Emergency Medical Condition: Yes Medical Record Reviewed: Yes Interpretation(s) X-rays of the left shoulder are unremarkable. Differential Diagnosis Contusion left shoulder, dislocation left shoulder, fracture left shoulder Narrative Course The patient has a contusion left shoulder. Plan: She will be given a sling and a prescription for Motrin 600 mg 3 times daily. Diagnosis Primary Impression: Contusion of left shoulder Additional Instructions: Rest and Motrin are the treatment for this. Take the Motrin 600 mg 3 times daily. Follow-up with a primary care physician this week. Med/Other Pt SpecificInfo: Prescription(s) given Scripts Ibuprofen 600 Mg Sbo024 Mg PO TID #44 TAB Ref 0 Prov:Gentry Crawford MD 07/04/16 Disposition: 01 DISCHARGE HOME Condition: Stable Gentry Crawford MD July 04, 2016 00:55
--- NOTE | 2016-07-04 01:25 | RADHPO ---
EXAM DATE/TIME: 07/04/2016 01:00 [place] COMPARISON: No previous studies available for comparison. INDICATIONS : Left shoulder pain after falling MEDICAL HISTORY : Diabetes mellitus type II. SURGICAL HISTORY : None. ENCOUNTER: Initial ACUITY: 1 day PAIN SCORE: 7/10 LOCATION: Left shoulder FINDINGS: Multiple view examination of the left shoulder demonstrates no evidence of fracture or dislocation. The glenohumeral and acromioclavicular joints are maintained. There is normal range of motion betwee n internal and external rotation. Bony mineralization is normal. CONCLUSION: Unremarkable examination of the left shoulder. Bashir Gong MD on July 04, 2016 at 1:21 Board Certified Radiologist. This report was verified electronically.
[2016-07-04 01:30] VITALS: BP 140/85; PULSE 76; RESP 16; O2SAT 100
[2016-07-04] MEDS ORDERED: IBUP-232 PO (02:29)
== END 2016-07-04 02:53 | disposition home or self-care (01) ==
LOC: PHED 23:40
DX: S40.012A Contusion of left shoulder, initial encounter (principal); E11.649 Type 2 diabetes mellitus with hypoglycemia without coma; W19.XXXA Unspecified fall, initial encounter; Y92.9 Unspecified place or not applicable; Y99.9 Unspecified external cause status
CPT/HCPCS: 73030; 99283

== ENCOUNTER 2016-12-13 14:48 | Emergency (ER) | payer MEDICAID ==
[~2016-12-13 14:48] MED LIST changes: +DIPH25CA PO; -GLUC40GE PO; +LOPE2CAP PO; +PRED20 PO; -PREN29TA PO; -ZOFR4TAB PO; +ZOFR4TAB3 SL
[2016-12-13 14:50] VITALS: BP 141/85; PULSE 72; RESP 20; TEMP 98; O2SAT 98
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
[2016-12-13] MEDS ORDERED: ROBA500T PO (17:35)
[2016-12-13] MEDS ORDERED: IBUP1TAB7 PO (17:35)
== END 2016-12-13 17:52 | disposition left against medical advice (07) ==
LOC: NED 14:48
DX: M54.9 Dorsalgia, unspecified (principal); D64.9 Anemia, unspecified; F31.9 Bipolar disorder, unspecified; F41.9 Anxiety disorder, unspecified; E28.2 Polycystic ovarian syndrome; G47.30 Sleep apnea, unspecified
CPT/HCPCS: 99281

== ENCOUNTER 2016-12-13 15:46 | Emergency (ER) | payer OTHER, MEDICAID ==
[~2016-12-13] VITALS: Ht 167.6 cm; Wt 119.0 kg
[2016-12-13 15:54] VITALS: BP 158/93; PULSE 87; RESP 16; TEMP 98.1; O2SAT 100
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
[2016-12-13] MEDS ORDERED: ORPHENADRINE INJ 60 MG/2 ML AMP IM ONE (16:15)
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
[2016-12-13] MEDS ORDERED: IBUP1TAB7 PO (17:35)
[2016-12-13] MEDS ORDERED: ROBA500T PO (17:35)
== END 2016-12-13 17:51 | disposition home or self-care (01) ==
LOC: PHEFT 15:46
DX: S16.1XXA Strain of muscle, fascia and tendon at neck level, initial encounter (principal); S39.012A Strain of muscle, fascia and tendon of lower back, initial encounter; V89.2XXA Person injured in unspecified motor-vehicle accident, traffic, initial encounter
CPT/HCPCS: 72125; 72131; 84703; 96372; 99285; J2360

== ENCOUNTER 2016-12-14 08:06 | Emergency (ER) | payer MEDICAID ==
[~2016-12-14] VITALS: Ht 167.6 cm; Wt 120.0 kg
[~2016-12-14 08:06] MED LIST changes: -DIPH25CA PO; +IBUP1TAB7 PO; -LOPE2CAP PO; -PRED20 PO; +ROBA500T PO; -ZOFR4TAB3 SL
[2016-12-14 08:08] VITALS: BP 179/101; PULSE 93; RESP 20; TEMP 98.8; O2SAT 100
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
== END 2016-12-14 08:26 | disposition left against medical advice (07) ==
LOC: NEPD 08:06
DX: Z04.1 Encounter for examination and observation following transport accident (principal)
CPT/HCPCS: 99281

== ENCOUNTER 2017-03-01 00:13 | Emergency (ER) | payer MEDICAID ==
[~2017-03-01] VITALS: Ht 165.1 cm; Wt 125.5 kg
[2017-03-01 00:20] VITALS: BP 158/99; PULSE 100; RESP 20; TEMP 97.3; O2SAT 100
[2017-03-01 01:09] VITALS: BP_SYST 140; BP_SYST 159; BP_DIAS 121; BP_DIAS 92; PULSE 86; RESP 18; TEMP 97.3; O2SAT 100
--- NOTE | 2017-03-01 01:12 | PD ---
HPI . Chest pain Chief Complaint: Chest Pain Time Seen by Provider: 00:58 Travel History International Travel<30 days: No Contact w/Intl Traveler<30days: No History of Present Illness HPI This patient presents with a chief complaint of chest pain. Onset was one half hour prior to presentation. She describes a tightness. She denies any modifying factors. Symptoms are very mild. PFSH Past Medical History Hx Anticoagulant Therapy: No Anemia: Yes (S/P SURGERY) Bipolar Disorder: Yes Anxiety: Yes Depression: Yes Cancer: No Cardiovascular Problems: No Chemotherapy: No Cerebrovascular Accident: No Diminished Hearing: No Endocrine: Yes (HYPOGLYCEMIC AT TIMES) Gastrointestinal Disorders: No Genitourinary: No Immune Disorder: No Implanted Vascular Access Dvce: Yes Musculoskeletal: No Neurologic: No Psychiatric: No Reproductive: Yes (PCOS) Respiratory: No Immunizations Current: Yes Sleep Apnea: Yes (RESOLVED) Thyroid Disease: No : 3 Para: 2 Miscarriage: 1 Ovarian Cysts: Yes Past Surgical History Abdominal Surgery: Yes (GBP, ABDOMINOPLASTY, cholecystectomy) Body Medical Devices: BREAT IMPLANTS Cholecystectomy: Yes Hysterectomy: No Other Surgery: Yes (TUMMY TUCK AND EXCESS SKIN REMOVAL 4 DAYS) Social History Alcohol Use: No Tobacco Use: No Substance Use: No Allergies-Medications (Allergen,Severity, Reaction): Coded Allergies: tomato (Unverified Allergy, Severe, Anaphylaxis, 12/14/16) Reported Meds & Prescriptions Reported Meds & Active Scripts Active Ibuprofen 800 Mg Tab 800 Mg PO Q6HR PRN Robaxin (Methocarbamol) 500 Mg Tab 500 Mg PO QID PRN Review of Systems Except as stated in HPI: all other systems reviewed are Neg Physical Exam Narrative GENERAL: Awake and alert and in no acute distress. SKIN: Warm and dry. Normal color and turgor. HEAD: Normocephalic/atraumatic. EYES: Pupils are equal. Extraocular movements are intact. NECK: Normal range of motion. CARDIOVASCULAR: Regular rate and rhythm. Heart sounds are normal. RESPIRATORY: Nonlabored respirations. Lungs are clear with full air movement throughout. Chest wall is nontender to palpation. MUSCULOSKELETAL: Atraumatic. NEUROLOGICAL: Nonfocal. PSYCHIATRIC: Appropriate mood and affect. Data Data Last Documented VS Vital Signs Date Time Temp Pulse Resp B/P (MAP) Pulse Ox O2 Delivery O2 Flow Rate FiO2 03/01/17 01:14 Room Air 03/01/17 01:09 97.3 86 18 140/121 (127) 100 159/92 (114) Orders Orders Lorazepam (Ativan) (03/01/17 01:15) Basic Metabolic Panel (Bmp) (03/01/17 01:12) Complete Blood Count With Diff (03/01/17 01:12) Troponin I (03/01/17 01:12) Chest, Single Ap (03/01/17 01:12) Ecg Monitoring (03/01/17 01:12) Bilateral Bp Monitoring (03/01/17 01:12) Iv Access Insert/Monitor (03/01/17 01:12) Oximetry (03/01/17 01:12) Aspirin Chew (Aspirin Chew) (03/01/17 01:15) Sodium Chloride 0.9% Flush (Ns Flush) (03/01/17 01:15) Labs Laboratory Tests Test 03/01/17 01:43 White Blood Count 10.3 TH/MM3 Red Blood Count 4.53 MIL/MM3 Hemoglobin 11.6 GM/DL Hematocrit 36.6 % Mean Corpuscular Volume 80.7 FL Mean Corpuscular Hemoglobin 25.5 PG Mean Corpuscular Hemoglobin Concent 31.6 % Red Cell Distribution Width 15.3 % Platelet Count 301 TH/MM3 Mean Platelet Volume 10.2 FL Neutrophils (%) (Auto) 58.6 % Lymphocytes (%) (Auto) 29.0 % Monocytes (%) (Auto) 7.6 % Eosinophils (%) (Auto) 1.9 % Basophils (%) (Auto) 2.9 % Neutrophils # (Auto) 6.0 TH/MM3 Lymphocytes # (Auto) 3.0 TH/MM3 Monocytes # (Auto) 0.8 TH/MM3 Eosinophils # (Auto) 0.2 TH/MM3 Basophils # (Auto) 0.3 TH/MM3 CBC Comment DIFF FINAL Differential Comment Blood Urea Nitrogen 13 MG/DL Creatinine 0.73 MG/DL Random Glucose 84 MG/DL Calcium Level 8.2 MG/DL Sodium Level 140 MEQ/L Potassium Level 3.7 MEQ/L Chloride Level 105 MEQ/L Carbon Dioxide Level 27.9 MEQ/L Anion Gap 7 MEQ/L Estimat Glomerular Filtration Rate 94 ML/MIN Troponin I LESS THAN 0.02 NG/ML MDM Medical Decision Making Medical Screen Exam Complete: Yes Emergency Medical Condition: Yes Interpretation(s) EKG shows a normal sinus rhythm with no acute ischemic change. Differential Diagnosis Differential diagnosis of chest pain includes but is not limited to musculoskeletal pain, pulmonary embolism, acute coronary syndrome, pneumonia, pleurisy Narrative Course This patient presents with a pressure in her chest. She looks well. She has a normal EKG. She has no history of hypertension, diabetes or tobacco abuse. She denies drug abuse. CBC & BMP Diagram 03/01/17 01:43 Calcium Level 8.2 L trop < 0.02 Last Impressions Chest X-Ray 03/01/17 0112 Signed Impressions: Service Date/Time: Wednesday, March 01, 2017 01:31 - CONCLUSION: The lungs are clear. Kosta Cavazos MD The history, exam, diagnostic testing, and current condition do not suggest any significant pathology to warrant further testing, continued ED treatment, admission, or surgical evaluation at this point. No EMC was found. The patient 's condition is stable and appropriate for discharge. Diagnosis Primary Impression: Chest pressure Patient Instructions: Chest Pain (DC), General Instructions Disposition: 01 DISCHARGE HOME Condition: Stable Sharon Starks MD Mar 01, 2017 01:12
[2017-03-01] MEDS ORDERED: ASPIRIN 81 MG CHEW TAB PO ONE (01:15)
[2017-03-01] MEDS ORDERED: LORazepam 1 MG TAB PO ONE (01:15)
[2017-03-01] MEDS ORDERED: SODIUM CHLORIDE 0.9% FLUSH 10 ML FLUSH IVF PRN (01:15)
--- NOTE | 2017-03-01 01:52 | RADRPT ---
EXAM DATE/TIME: 03/01/2017 01:31 [facility] COMPARISON: No previous studies available for comparison. INDICATIONS : Chest pain. MEDICAL HISTORY : None. SURGICAL HISTORY : None. ENCOUNTER: Initial ACUITY: 1 day PAIN SCORE: 6/10 LOCATION: Bilateral chest FINDINGS: A single view of the chest demonstrates the lungs to be symmetrically aerated without evidence of mas s, infiltrate or effusion. The cardiomediastinal contours are unremarkable. Osseous structures are intact. CONCLUSION: The lungs are clear. Kosta Cavazos MD on March 01, 2017 at 1:50 Board Certified Radiologist. This report was verified electronically.
[2017-03-01 02:00] LABS: BASOPHIL # 0.3 TH/MM3 (0-0.2); BASOPHIL % 2.9 % (0.0-2.0); EOSINOPHIL # 0.2 TH/MM3 (0-0.4); EOSINOPHIL % 1.9 % (0.0-4.0); HEMATOCRIT 36.6 % (35.0-46.0); HEMOGLOBIN 11.6 GM/DL (11.6-15.3); MEAN CELL VOLUME 80.7 FL (80.0-100.0); MEAN CORPUSCULAR HEMOGLOBIN 25.5 PG (27.0-34.0); MEAN CORPUSCULAR HGB CONC 31.6 % (32.0-36.0); MEAN PLATELET VOLUME 10.2 FL (7.0-11.0); MONO % 7.6 % (0.0-8.0); MONOCYTE # 0.8 TH/MM3 (0-0.9); NEUT % 58.6 % (16.0-70.0); PLATELET COUNT 301 TH/MM3 (150-450); RED BLOOD COUNT 4.53 MIL/MM3 (4.00-5.30); RED CELL DISTRIBUTION WIDTH 15.3 % (11.6-17.2); WHITE BLOOD COUNT 10.3 TH/MM3 (4.0-11.0)
[2017-03-01 02:07] LABS: CHLORIDE 105 MEQ/L (98-107); SODIUM (NA) 140 MEQ/L (136-145)
[2017-03-01 02:09] LABS: CALCIUM 8.2 MG/DL (8.5-10.1)
[2017-03-01 02:10] LABS: BICARBONATE 27.9 MEQ/L (21.0-32.0); BLOOD UREA NITROGEN 13 MG/DL (7-18); GLUCOSE,RANDOM 84 MG/DL (74-106)
[2017-03-01 02:13] LABS: CREATININE 0.73 MG/DL (0.50-1.00); GLOMERULAR FILTRATION RATE 94 ML/MIN (>89)
[2017-03-01 02:17] LABS: TROPONIN I LESS THAN 0.02 NG/ML (0.02-0.05)
[2017-03-01 02:46] VITALS: BP 150/80
--- NOTE | 2017-03-01 12:08 | EKG ---
Date Performed: 03/01/2017 Time Performed: 00:25:10 PTAGE: 27 years EKG: Sinus rhythm NORMAL ECG PREVIOUS TRACING : 05/30/2015 22.43 Since the prior tracing, there has been no significant wilcox braeden DOCTOR: Mike Schofield Interpretating Date/Time 03/01/2017 12:07:45
== END 2017-03-01 02:48 | disposition home or self-care (01) ==
LOC: PHED 00:13
DX: R07.89 Other chest pain (principal)
CPT/HCPCS: 71045; 80048; 84484; 85025; 93005; 99285